=== PATIENT | female | born 1970 | race Caucasian/White ===

== ENCOUNTER 2020-03-06 16:51 | Outpatient (REF) | payer OTHER, SELFPAY ==
--- NOTE | 2020-03-06 | XR_ITS ---
EXAMINATION: RIGHT KNEE CLINICAL INFORMATION: Right knee pain COMPARISON: None TECHNIQUE: 2 views right knee FINDINGS: No bone joint or soft tissue is seen. IMPRESSION: Negative exam
== END 2020-03-06 16:52 | disposition home or self-care (01) ==
LOC: HO.HMGCX 16:51
PROVIDERS: Visit Provider Hospitalist
DX: M25.561 Pain in right knee (principal)
CPT/HCPCS: 73560

== ENCOUNTER 2022-08-20 15:06 | Outpatient (REF) | payer OTHER, SELFPAY ==
[2022-08-20 15:28] LABS: Appearance Urine Turbid; Color Urine Yellow; Glucose Urine UA Negative (Negative); Leukocyte Esterase Urine Moderate (2+) (Negative); Nitrite Urine Negative (Negative); PH 5.5 (5.0-9.0); Specific Gravity - Urine >= 1.030 (1.005-1.025); UMIC TRIGGER UACC YES; Urine Blood Negative (Negative); Urine Ketones Trace mg/dL (Negative); Urine Protein Negative (Neg-Trace)
[2022-08-20 15:34] LABS: Bacteria Urine 4+ (None Seen); Hyaline Casts Urine 0-2 /LPF (0-2); RBC Urine 0-2 /HPF (0-2); UACC Culture Trigger YES
== END 2022-08-20 15:07 | disposition home or self-care (01) ==
LOC: HO.LNP 15:06
PROVIDERS: Visit Provider Nurse Practitioner Family
DX: R30.0 Dysuria (principal); R42 Dizziness and giddiness
CPT/HCPCS: 81001; 87086; 87088; 87186

== ENCOUNTER 2022-09-01 08:48 | Outpatient (REF) | payer OTHER, SELFPAY ==
[2022-09-01 11:41] LABS: MANUAL DIFF FLAG NO
[2022-09-01 11:52] LABS: Basophils Percent Auto 0.5 % (0-2); Eosinophils Absolute Auto 0.2 X10*3/uL (0.0-0.4); Eosinophils Percent Auto 3.2 % (0-4); Hematocrit 42.4 % (37.0-47.0); Imm Gran Abs Auto 0.02 X10*3/uL (0.00-0.03); Imm Gran Pct Auto 0.3 % (0.0-0.4); Lymphocytes Absolute Auto 2.9 X10*3/uL (1.2-4.9); Lymphocytes Percent Auto 43.6 % (20-40); Mean Corpuscular Hemoglobin 29.6 pg (27.0-33.0); Mean Corpuscular Volume 89.6 fL (80.0-98.0); Mean Platelet Volume 11.7 fL (9.4-12.3); Monocytes Absolute Auto 0.5 X10*3/uL (0.1-1.2); Neutrophils Percent Auto 45.4 % (45-73); Platelet Count 201 X10*3/uL (160-400); Red Blood Count 4.73 X10*6/uL (4.20-5.50); Red Cell Distribution Width 13.4 % (11.0-16.0); White Blood Count 6.6 X10*3/uL (4.8-10.8)
[2022-09-01 12:25] LABS: Alanine Aminotransferase 36 U/L (0-31); Albumin Level 4.1 g/dL (3.5-5.0); Alkaline Phosphatase 51 U/L (39-117); Anion Gap 12 (12-20); Aspartate Amino Transferase 24 U/L (5-31); Bilirubin Total 0.4 mg/dL (0.0-1.0); Blood Urea Nitrogen 14 mg/dL (9-16); Calcium 9.2 mg/dL (8.4-10.2); Carbon Dioxide 26 mmol/L (22-29); Chloride 107 mmol/L (96-108); Cholesterol 165 mg/dL; Estimated Glomerular Filt Rate > 60; Glucose Fasting 96 mg/dL (60-99); HDL Cholesterol 45 mg/dL; LDL Cholesterol Calculated 79 mg/dl; Sodium 141 mmol/L (135-145); Total Protein 6.8 g/dL (6.5-8.0); Triglycerides 209 mg/dL
[2022-09-01 12:26] LABS: TSH reflex Free T4 1.24 uIU/mL (0.32-4.0)
[2022-09-03 04:23] LABS: Follicle Stimulating Hormone 6.2 mIU/mL; Lutenizing Hormone 4.5 mIU/mL
== END 2022-09-01 08:49 | disposition home or self-care (01) ==
LOC: HO.HMGCLDS 08:48
PROVIDERS: PCP Internal Medicine; Visit Provider Internal Medicine
DX: E66.09 Other obesity due to excess calories (principal); N93.8 Other specified abnormal uterine and vaginal bleeding; R23.2 Flushing; R42 Dizziness and giddiness; Z91.09 Other allergy status, other than to drugs and biological substances
CPT/HCPCS: 36415; 80053; 80061; 83001; 83002; 84443; 85025

== ENCOUNTER 2023-01-28 08:08 | Outpatient (AMB) | payer SELFPAY ==
[2023-01-28 08:13] VITALS: BP 122/72; PULSE 72; O2SAT 98; BMI 36.0
--- NOTE | 2023-01-28 08:13 | A.OFFPC_ITS ---
Vital Signs 01/28/23 08:13 Height 5 ft 5 in Weight 216 lb 8 oz BMI 36.0 BP 122/72 Blood Pressure Location Rt brachial Position Sitting Pulse 72 Pulse Source Pulse Oximeter Pulse Oximetry (%) 98 Intake Visit Reasons: PE Allergies penicillin G [Penicillin G] Allergy (Unknown, Verified 01/28/23 08:14) HIVES penicillin V Allergy (Unknown, Verified 01/28/23 08:14) unknown Bee stings Allergy (Unknown, Uncoded 08/20/22 12:58) swelling Codeine Adverse Reaction (Unknown, Uncoded 08/20/22 12:58) stomach upset Medication List - Last Reconciled 01/28/23 by Elo Cowan MD meclizine 12.5 mg PO BID-QID PRN 15 days Tobacco use date assessed: 08/27/22 Dental Screening Dental Screen Date: 01/28/23 Did you have a dental visit in the last 12 months?: Yes Did you have a dental problem in the last 6 months where you did not have access to dental care?: No Was dental information given to patient?: Patient has dentist HPI PE HPI Details Patient is 52-year-old female came in today for physical exam She had labs done August of this year Kidney function intact lipids well controlled One of liver enzyme was slightly elevated in 30s TSH was within normal limit FS and LDH was within normal limit as well Mammogram due Pap smear due, referral placed OBGYN Colonoscopy, patient would like to have a Cologuard test order placed BMI is 36.0 patient need to lose weight, appointment with dietitian offered, patient says that she had already know what to do she is just over eating Vital signs stable Patient has been having increasing anxiety lately she said that she does not need any assistance at this time but she might later on she will get back to me It has to do with her bills, patient is having difficulty keeping a with her finances. Her dizziness is better at this time she is no longer taking meclizine For allergies patient is taking [id number] long-acting antihistamine as needed Follow-up 1 year physical exam PFSH Family History Daughter Depression Anxiety Son Anxiety Depression Social History Housing: House Patient Tobacco Use Status: Former Tobacco user e-Cigarette/Vaping Use: Never Used service: No Current occupational status: employed Cognitive needs: No Hearing needs: No Vision needs: Yes Questionnaire PHQ-9 Over the last 2 weeks, how often have you been bothered by any of the following problems? 1. Little interest or pleasure in doing things: not at all 2. Feeling down, depressed, or hopeless: not at all 3. Trouble falling or staying asleep, or sleeping too much: nearly every day 4. Feeling tired or having little energy: not at all 5. Poor appetite or overeating: several days 6. Feeling bad about yourself - or that you are a failure or have let yourself or your family down: several days 7. Trouble concentrating on things, such as reading the newspaper or watching television: several days 8. Moving or speaking so slowly that other people could have noticed. Or the opposite - being so fidgety or restless that you have been moving around a lot more than usual: not at all 9. Thoughts that you would be better off or of hurting yourself in some way: not at all Total score: 6 Depression Screening Interpretation: Negative 78279 - PHQ-9 Billing: Yes Source: Developed by Drs. Fabian Palmer, Meli Carter, Dallas Brennan and colleagues, with an educational pam from [employer]. Thrive Questionnaire Date Thrive assessed: 01/28/23 I am a: Patient What is your living situation today?: I have a steady place to live Within the past 12 months, did the food you bought not last and you didn't have the money to get more?: Sometimes True Within the past 12 months, did you worry whether your food would run out before you got money to buy more?: Sometimes True Do you have trouble paying for medicines?: Yes Do you have trouble getting transportation to medical appointments?: No Do you have trouble paying your heating and electricity bill?: Yes Do you have trouble taking care of your child, family member or friend?: No Do you have trouble with day-to-day activities such as bathing, preparing meals, shopping, managing finances, etc.?: No Are you currently unemployed and looking for a job?: No Are you interested in more education?: Yes Please select the resources that you would like help with: Food, Paying for medicine and Utilities JACQUELINE-7 AMB Questionnaire JACQUELINE-7 Date JACQUELINE - 7 assessed: 01/28/23 Feeling nervous, anxious, or on edge: 2 = More than half the days Not being able to stop or control worryin = More than half the days Worrying too much about different things: 2 = More than half the days Trouble relaxin = More than half the days Being so restless that it is hard to sit still: 1 = Several days Becoming easily annoyed or irritable: 1 = Several days Feeling afraid as if something awful might happen: 2 = More than half the days Total JACQUELINE-7 score (0-4 normal; 5-9 mild; 10-14 moderate; 15-21 severe): 12 Source: Developed by Drs. Fabian Palmer, Meli Carter, Dallas Brennan and colleagues, with an educational pam from [employer]. JACQUELINE-7 Assessment Billing JACQUELINE-7 Assessment Tool: JACQUELINE-7 Assessment 72896 Review of Systems Const Denies chills, Denies fever(s) and Denies headache(s) Eyes Denies blurry vision ENT Denies headache(s), Denies nasal discharge, Denies nasal obstruction, Denies odynophagia and Denies sinus pain Card Denies chest pain at rest and Denies chest pain with activity Resp Denies cough and Denies hemoptysis GI Denies diarrhea, Denies odynophagia, Denies vomiting and Denies hematemesis Reports as per HPI Musc Denies abnormal gait Skin/Breast Reports as per HPI Neuro Denies Neuro-related abnormal movements, Denies Abnormal speech present, Denies abnormal gait, Denies headache(s) and Denies Sensory deficit (Neuro) Psych Denies mood swings and Denies paranoia Endo Reports as per HPI Kameron/Lymph Reports as per HPI Aller/Immun Reports as per HPI Physical exam (Primary Care) Vital Signs: Last Vital Signs Pulse 72 01/28/23 08:13 BP 122/72 01/28/23 08:13 Pulse Ox 98 01/28/23 08:13 BMI result Body Mass Index 36.0 Tobacco/Smoking Status: Tobacco use Status Tobacco use date assessed 08/27/22 01/28/23 08:14 Patient Tobacco Use Status Former Tobacco user 08/25/23 08:14 e-Cigarette/Vaping Use Never Used 01/28/23 08:14 PHQ-9: PHQ-9 Score PHQ-9: Total score 6 01/28/23 09:08 Depression Screening Interpretation: Negative Thrive Assessment: Date of Thrive Assessment Date Thrive assessed 01/28/23 01/28/23 09:08 Const General: cooperative, comfortable and no acute distress Orientation/consciousness: patient oriented x3 HENMT Head: Yes normocephalic and Yes atraumatic Eyes General: appearance normal, both eyes and all related structures Pupils: Equal, round and reactive pupils present EOM: EOMs intact bilaterally Neck Neck: Yes supple and No lymphadenopathy Thyroid: Thyroid normal Lymphatic: no lymphadenopathy noted Chest Breast/axilla palpation: normal palpation of the breasts Resp Effort & Inspection: normal respiratory effort and able to speak in complete sentences Auscultation: clear to auscultation bilaterally Cardio Heart sounds: S1 normal heart sound present and S2 normal heart sound present GI Palpation (GI): Soft to palpation and nontender Auscultation: normal bowel sounds General: Yes no CVA tenderness Back/Spine/Pelvis Back: no CVA tenderness Skin General skin exam: elasticity normal and turgor normal Neuro General: patient oriented x3 and gait normal Cranial nerves: Yes Equal, round and reactive pupils present Speech: No Abnormal speech present Sensory Exam: No Sensory deficit (Neuro) Coordination: tandem gait normal and Romberg test negative Extrem General: Yes normal exam except as noted and No edema Assessment and Plan Assessment & Plan (1) Encounter for general adult medical examination with abnormal findings: Code(s): Z00.01 - Encounter for general adult medical examination with abnormal findings (2) LFT elevation: Code(s): R79.89 - Other specified abnormal findings of blood chemistry (3) Obesity due to excess calories: Comment: If your BMI is between 25 and 29.9, you are overweight. If your BMI is 30 or greater, you are obese. ___ Being obese is a problem, because it increases the risks of many different health problems. It can also make it hard for you to move, breathe, and do other things that people who are at a healthy weight can do easily. Plus, being obese can be hard emotionally. ___ What are the health risks of being obese? Being obese increases a persons risk of developing many health problems. Here are just a few examples: __ Diabetes High blood pressure, High cholesterol, Heart disease (including heart attacks) Stroke, Sleep apnea (a disorder in which you stop breathing for short periods while asleep) Asthma, Cancer __ Does being obese shorten a persons life? Yes. Studies show that people who are obese younger than people who are a healthy weight. They also show that the risk of goes up the heavier a person is. The degree of increased risk depends on how long the person has been obese, and on what other medical problems he or she has. , Reduce your carbohydrate intake and choose carbs that are complex. Remember as a general rule of thumb, avoid highly processed foods. If it's white and soft, it's probably been stripped of its nutritional value. Change white bread to whole wheat bread, white rice to brown rice, white potatoes to sweet potatoes, white pasta to whole wheat pasta. Monitor portion sizes too: protein should be no bigger than your fist. Limit your red meat intake to only once or twice a wk. Eat more white meat but make sure to avoid creamy sauces etc. Broiling, baking or grilling is best. Increase dark, green leafy vegetables and fruits. Code(s): E66.09 - Other obesity due to excess calories Qualifiers: Body mass index: BMI 36.0-36.9 Obesity classification: adult class 2 (BMI 35 - 39.9) Serious obesity comorbidity presence: without serious comorbidity Qualified Code(s): E66.09 - Other obesity due to excess calories; Z68.36 - Body mass index [BMI] 36.0-36.9, adult (4) Environmental allergies: Code(s): Z91.09 - Other allergy status, other than to drugs and biological substances (5) Anxiety, generalized: Code(s): F41.1 - Generalized anxiety disorder (6) Stress at home: Code(s): F43.9 - Reaction to severe stress, unspecified Plan Patient is 52-year-old female came in today for physical exam She had labs done August of this year Kidney function intact lipids well controlled One of liver enzyme was slightly elevated in 30s TSH was within normal limit FS and LDH was within normal limit as well Mammogram due Pap smear due, referral placed OBGYN Colonoscopy, patient would like to have a Cologuard test order placed BMI is 36.0 patient need to lose weight, appointment with dietitian offered, patient says that she had already know what to do she is just over eating Vital signs stable Patient has been having increasing anxiety lately she said that she does not need any assistance at this time but she might later on she will get back to me It has to do with her bills, patient is having difficulty keeping a with her finances. Her dizziness is better at this time she is no longer taking meclizine For allergies patient is taking [id number] long-acting antihistamine as needed Follow-up 1 year physical exam Orders: Orders Liver Panel Today E66.09 - Other obesity due to excess calories, R79.89 - Other specified abnormal findings of blood chemistry, Z00.01 - Encounter for general adult medical examination with abnormal findings, Z91.09 - Other allergy status, other than to drugs and biological substances Referrals [employer] Referral Z01.419 - Encounter for gynecological examination (general) (routine) without abnormal findings Cologuard Test Z12.11 - Encounter for screening for malignant neoplasm of colon, Z12.12 - Encounter for screening for malignant neoplasm of rectum Coding Level of Care Code Est Pt Prev Care 40-64y(92208) Diagnoses Encounter for general adult medical examination with abnormal findings Z00.01 LFT elevation R79.89 Obesity due to excess calories E66.09; Z68.36 Body mass index: BMI 36.0-36.9 Obesity classification: adult class 2 (BMI 35 - 39.9) Serious obesity comorbidity presence: without serious comorbidity Environmental allergies Z91.09 Anxiety, generalized F41.1 Stress at home F43.9 Additional Codes JACQUELINE-7 Assessment Billing - JACQUELINE-7 Assessment Tool: JACQUELINE-7 Assessment [id number] ([id number])
== END 2023-01-28 08:45 | disposition home or self-care (01) ==
PROVIDERS: Visit Provider Internal Medicine
DX: Z00.01 Encounter for general adult medical examination with abnormal findings (principal); F43.9 Reaction to severe stress, unspecified; Z68.36 Body mass index [BMI] 36.0-36.9, adult; Z91.09 Other allergy status, other than to drugs and biological substances; R79.89 Other specified abnormal findings of blood chemistry; E66.09 Other obesity due to excess calories; F41.1 Generalized anxiety disorder
CPT/HCPCS: 99396

== ENCOUNTER 2024-02-08 14:39 | Outpatient (AMB) | payer OTHER, SELFPAY ==
[2024-02-08 14:40] VITALS: BP 126/84; PULSE 77; O2SAT 98; BMI 36.1
--- NOTE | 2024-02-08 14:40 | MHC.PC.OV ---
Vital Signs 02/08/24 14:40 Height 5 ft 5 in Weight 217 lb 2 oz BMI 36.1 BP 126/84 Blood Pressure Location Rt brachial Position Sitting Pulse 77 Pulse Source Pulse Oximeter Pulse Oximetry (%) 98 Oxygen Delivery Method Room Air Intake Visit Reasons: PE Allergies penicillin G [Penicillin G] Allergy (Unknown, Verified 02/08/24 14:41) HIVES penicillin V Allergy (Unknown, Verified 02/08/24 14:41) unknown Bee stings Allergy (Unknown, Uncoded 08/20/22 12:58) swelling Codeine Adverse Reaction (Unknown, Uncoded 08/20/22 12:58) stomach upset Medication List - Last Reconciled 02/08/24 by Elo Cowan MD No Known Home Meds Tobacco use date assessed: 02/08/24 Dental Screening Dental Screen Date: 02/08/24 Did you have a dental visit in the last 12 months?: Yes Did you have a dental problem in the last 6 months where you did not have access to dental care?: No Was dental information given to patient?: Patient has dentist HPI PE HPI Details Patient is a 53-year-old female came in today for physical exam Mammogram due Papsmear due Colonscopy due Appropriate referrals placed labs order placed fasting Knee pain continues left side more than right , she has seen [facility] in the past , PT ordered she couldnt finish PT due to work I would recommend to give them a call and book another appointment Lab order placed to be done fasting BMI is elevated patient is trying to lose weight. PFSH Family History Daughter Depression Anxiety Son Anxiety Depression Social History Housing: House Patient Tobacco Use Status: Former Tobacco user e-Cigarette/Vaping Use: Never Used service: No Current occupational status: employed Cognitive needs: No Hearing needs: No Vision needs: Yes Questionnaire PHQ-9 Over the last 2 weeks, how often have you been bothered by any of the following problems? 1. Little interest or pleasure in doing things: several days 2. Feeling down, depressed, or hopeless: several days 3. Trouble falling or staying asleep, or sleeping too much: not at all 4. Feeling tired or having little energy: several days 5. Poor appetite or overeating: not at all 6. Feeling bad about yourself - or that you are a failure or have let yourself or your family down: not at all 7. Trouble concentrating on things, such as reading the newspaper or watching television: not at all 8. Moving or speaking so slowly that other people could have noticed. Or the opposite - being so fidgety or restless that you have been moving around a lot more than usual: not at all 9. Thoughts that you would be better off or of hurting yourself in some way: not at all Total score: 3 Depression Screening Interpretation: Negative Depression Screening Done: Yes 08052 - PHQ-9 Billing: Yes Source: Developed by Drs. Fabian Palmer, Meli Carter, Dallas Brennan and colleagues, with an educational pam from [employer]. Thrive Questionnaire Date Thrive assessed: 02/08/24 I am a: Patient What is your living situation today?: I have a steady place to live Within the past 12 months, did the food you bought not last and you didn't have the money to get more?: Never true Within the past 12 months, did you worry whether your food would run out before you got money to buy more?: Never true Do you have trouble paying for medicines?: No Do you have trouble getting transportation to medical appointments?: No Do you have trouble paying your heating and electricity bill?: No Do you have trouble taking care of your child, family member or friend?: No Do you have trouble with day-to-day activities such as bathing, preparing meals, shopping, managing finances, etc.?: No Are you currently unemployed and looking for a job?: No Are you interested in more education?: No Please select the resources that you would like help with: None Currently or been in a relationship where the following occur: No concerns reported THRIVE Score: 0 AUDIT C Alcohol Use Questionnaire (AUDIT-C) 1. How often do you have a drink containing alcohol?: Never 3. How often do you have six or more drinks on one occasion?: Never Total Score: 0 Score Reviewed/Action Taken: Yes JACQUELINE-7 AMB Questionnaire JACQUELINE-7 Date JACQUELINE - 7 assessed: 02/08/24 Feeling nervous, anxious, or on edge: 1 = Several days Not being able to stop or control worryin = Several days Worrying too much about different things: 1 = Several days Trouble relaxin = More than half the days Being so restless that it is hard to sit still: 1 = Several days Becoming easily annoyed or irritable: 1 = Several days Feeling afraid as if something awful might happen: 2 = More than half the days Total JACQUELINE-7 score (0-4 normal; 5-9 mild; 10-14 moderate; 15-21 severe): 9 Source: Developed by Drs. Fabian Palmer, Meli Carter, Dallas Brennan and colleagues, with an educational pam from [employer]. JACQUELINE-7 Assessment Billing JACQUELINE-7 Assessment Tool: JACQUELINE-7 Assessment 09980 Review of Systems Const Denies chills, Denies fever(s) and Denies headache(s) Eyes Denies blurry vision ENT Denies headache(s), Denies nasal discharge, Denies nasal obstruction, Denies odynophagia and Denies sinus pain Card Denies chest pain at rest and Denies chest pain with activity Resp Denies cough and Denies hemoptysis GI Denies diarrhea, Denies odynophagia, Denies vomiting and Denies hematemesis Reports as per HPI Musc Denies abnormal gait Skin/Breast Reports as per HPI Neuro Denies Neuro-related abnormal movements, Denies Abnormal speech present, Denies abnormal gait, Denies headache(s) and Denies Sensory deficit (Neuro) Psych Denies mood swings and Denies paranoia Endo Reports as per HPI Kameron/Lymph Reports as per HPI Aller/Immun Reports as per HPI Physical exam (Primary Care) Vital Signs: Last Vital Signs Pulse 77 02/08/24 14:40 BP 126/84 02/08/24 14:40 Pulse Ox 98 02/08/24 14:40 Oxygen Delivery Method Room Air 02/08/24 14:40 BMI result Body Mass Index 36.1 Tobacco/Smoking Status: Tobacco use Status Tobacco use date assessed 02/08/24 02/08/24 14:43 Patient Tobacco Use Status Former Tobacco user 02/08/24 14:43 e-Cigarette/Vaping Use Never Used 02/08/24 14:43 PHQ-9: PHQ-9 Score PHQ-9: Total score 3 02/08/24 14:59 Depression Screening Interpretation: Negative Thrive Assessment: Date of Thrive Assessment Date Thrive assessed 02/08/24 02/08/24 14:43 Currently or been in a relationship where the following occur: No concerns reported Const General: cooperative, comfortable and no acute distress Orientation/consciousness: patient oriented x3 HENMT Head: Yes normocephalic and Yes atraumatic Eyes General: appearance normal, both eyes and all related structures Pupils: Equal, round and reactive pupils present EOM: EOMs intact bilaterally Neck Neck: Yes supple and No lymphadenopathy Thyroid: Thyroid normal Lymphatic: no lymphadenopathy noted Chest Breast/axilla palpation: normal palpation of the breasts Resp Effort & Inspection: normal respiratory effort and able to speak in complete sentences Auscultation: clear to auscultation bilaterally Cardio Heart sounds: S1 normal heart sound present and S2 normal heart sound present GI Palpation (GI): Soft to palpation and nontender Auscultation: normal bowel sounds General: Yes no CVA tenderness Back/Spine/Pelvis Back: no CVA tenderness Skin General skin exam: elasticity normal and turgor normal Neuro General: patient oriented x3 and gait normal Cranial nerves: Yes Equal, round and reactive pupils present Speech: No Abnormal speech present Sensory Exam: No Sensory deficit (Neuro) Coordination: tandem gait normal and Romberg test negative Extrem General: Yes normal exam except as noted and No edema Assessment and Plan Assessment & Plan (1) Encounter for general adult medical examination with abnormal findings: Code(s): Z00.01 - Encounter for general adult medical examination with abnormal findings (2) Obesity due to excess calories: Comment: If your BMI is between 25 and 29.9, you are overweight. If your BMI is 30 or greater, you are obese. ___ Being obese is a problem, because it increases the risks of many different health problems. It can also make it hard for you to move, breathe, and do other things that people who are at a healthy weight can do easily. Plus, being obese can be hard emotionally. ___ What are the health risks of being obese? Being obese increases a persons risk of developing many health problems. Here are just a few examples: __ Diabetes High blood pressure, High cholesterol, Heart disease (including heart attacks) Stroke, Sleep apnea (a disorder in which you stop breathing for short periods while asleep) Asthma, Cancer __ Does being obese shorten a persons life? Yes. Studies show that people who are obese younger than people who are a healthy weight. They also show that the risk of goes up the heavier a person is. The degree of increased risk depends on how long the person has been obese, and on what other medical problems he or she has. , Reduce your carbohydrate intake and choose carbs that are complex. Remember as a general rule of thumb, avoid highly processed foods. If it's white and soft, it's probably been stripped of its nutritional value. Change white bread to whole wheat bread, white rice to brown rice, white potatoes to sweet potatoes, white pasta to whole wheat pasta. Monitor portion sizes too: protein should be no bigger than your fist. Limit your red meat intake to only once or twice a wk. Eat more white meat but make sure to avoid creamy sauces etc. Broiling, baking or grilling is best. Increase dark, green leafy vegetables and fruits. Code(s): E66.09 - Other obesity due to excess calories Qualifiers: Body mass index: BMI 36.0-36.9 Obesity classification: adult class 2 (BMI 35 - 39.9) Serious obesity comorbidity presence: without serious comorbidity Qualified Code(s): E66.09 - Other obesity due to excess calories; Z68.36 - Body mass index [BMI] 36.0-36.9, adult (3) Osteoarthritis involving multiple joints on both sides of body: Code(s): M15.9 - Polyosteoarthritis, unspecified Plan Patient is a 53-year-old female came in today for physical exam Mammogram due Papsmear due Colonscopy due Appropriate referrals placed labs order placed fasting Knee pain continues left side more than right , she has seen [facility] in the past , PT ordered she couldnt finish PT due to work I would recommend to give them a call and book another appointment Lab order placed to be done fasting BMI is elevated patient is trying to lose weight. Orders: Orders Complete Blood Count Auto Diff Today E66.09 - Other obesity due to excess calories, M15.9 - Polyosteoarthritis, unspecified, Z00.01 - Encounter for general adult medical examination with abnormal findings, Z68.36 - Body mass index [BMI] 36.0-36.9, adult Lipid Panel Today E66.09 - Other obesity due to excess calories, M15.9 - Polyosteoarthritis, unspecified, Z00.01 - Encounter for general adult medical examination with abnormal findings, Z68.36 - Body mass index [BMI] 36.0-36.9, adult Vitamin D 25-OH (D2 and D3) Today E66.09 - Other obesity due to excess calories, M15.9 - Polyosteoarthritis, unspecified, Z00.01 - Encounter for general adult medical examination with abnormal findings, Z68.36 - Body mass index [BMI] 36.0-36.9, adult TSH reflex Free T4 Today E66.09 - Other obesity due to excess calories, M15.9 - Polyosteoarthritis, unspecified, Z00.01 - Encounter for general adult medical examination with abnormal findings, Z68.36 - Body mass index [BMI] 36.0-36.9, adult MM tomosynthesis screening BI Today Z12.31 - Encounter for screening mammogram for malignant neoplasm of breast Comprehensive [place]. Panel Fast Today E66.09 - Other obesity due to excess calories, M15.9 - Polyosteoarthritis, unspecified, Z00.01 - Encounter for general adult medical examination with abnormal findings, Z68.36 - Body mass index [BMI] 36.0-36.9, adult Referrals [employer] Referral Z01.419 - Encounter for gynecological examination (general) (routine) without abnormal findings Open Access Screening Colonoscopy Referral Z12.11 - Encounter for screening for malignant neoplasm of colon Coding Level of Care Code Est Pt Level 3 (31239) Est Pt Prev Care 40-64y(08729) Diagnoses Encounter for general adult medical examination with abnormal findings Z00.01 Class 2 obesity due to excess calories without serious comorbidity with body mass index (BMI) of 36.0 to 36.9 in adult E66.09; Z68.36 Body mass index: BMI 36.0-36.9 Obesity classification: adult class 2 (BMI 35 - 39.9) Serious obesity comorbidity presence: without serious comorbidity Osteoarthritis involving multiple joints on both sides of body M15.9 Additional Codes JACQUELINE-7 Assessment Billing - JACQUELINE-7 Assessment Tool: JACQUELINE-7 Assessment [id number] ([id number])
== END 2024-02-08 15:05 | disposition home or self-care (01) ==
PROVIDERS: PCP Internal Medicine; Visit Provider Internal Medicine
DX: Z00.00 Encounter for general adult medical examination without abnormal findings (principal); E66.09 Other obesity due to excess calories; Z68.36 Body mass index [BMI] 36.0-36.9, adult; M15.9 Polyosteoarthritis, unspecified
CPT/HCPCS: 99396

== ENCOUNTER 2025-02-20 14:39 | Outpatient (AMB) | payer OTHER, SELFPAY ==
[2025-02-20 14:44] VITALS: BP 130/74; PULSE 76; O2SAT 96; BMI 37.4
--- NOTE | 2025-02-20 14:44 | A.OFFPC_ITS ---
Vital Signs 02/20/25 14:44 Height 5 ft 5 in Weight 225 lb BMI 37.4 BP 130/74 Blood Pressure Location Lt brachial Position Sitting Pulse 76 Pulse Source Pulse Oximeter Pulse Oximetry (%) 96 Intake Visit Reasons: PE - see comments Allergies penicillin G (Penicillin G) Allergy (Unknown, Verified 02/20/25 14:46) HIVES penicillin V Allergy (Unknown, Verified 02/20/25 14:46) unknown Bee stings Allergy (Unknown, Uncoded 08/20/22 12:58) swelling Codeine Adverse Reaction (Unknown, Uncoded 08/20/22 12:58) stomach upset Medication List - Last Reconciled 02/20/25 by Elo Cowan MD No Known Home Meds Tobacco use date assessed: 02/20/25 Dental Screening Dental Screen Date: 02/20/25 Did you have a dental visit in the last 12 months?: Yes Did you have a dental problem in the last 6 months where you did not have access to dental care?: No Was dental information given to patient?: Patient has dentist HPI PE - see comments HPI Details PE The patient is a 54-year-old female presenting for a wellness visit and management of ongoing health issues. Elevated Blood Pressure: - The patient reports that her blood pre ssure has been in a so-called crain zone, usually around 130/74. - She is advised to monitor her blood pr essure periodically. - She is aware of the importance of keep ing her blood pressure below WNL. Tendinitis: - The patient experiences tendinitis in both thumbs. - She reports pain that radiates downwar ds, linked to lifting activities. - Initially noticed when she started lif ting people as part of her work. Hiatal Hernia: - The patient reports that her hiatal he rnia acts up occasionally. - Dietary adjustments include eating mor e wheat and less white bread. Hemorrhoids: - The patient experiences itching associ ated with hemorrhoids but denies any bleeding. Cervical Disc Disease: - The patient has a history of cervical surgery involving disc intervention, with discs fused or added implant. 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 - Engages in activities to manage pain a nd tendinitis - Diet includes more wheat, attempting t o reduce sugar intake Health Maintenance - Recommended to check blood pressure oc casionally - Discussed the necessity of a colonosco py; Cologuard order placed pending insurance confirmation - Due mammogram scheduled for May 08 - Advised for dermatology checkup due to fair skin - Encouraged to maintain joint mobility through exercise [place] [facility] - Conrado CONNOR with scheduled appointme nt on May 08 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 - Enjoys current job Patient Instructions - Regularly check blood pressure and ens ure it stays under 140 - Confirm insurance coverage for colonos copy - Monitor dietary intake to manage hiata l hernia and reduce sugar - Follow up with dermatology for skin ch anges if needed - Maintain physical exercise without ove rexertion to keep joints mobile Review of Systems - General: No fever no chills - Neurological: No headaches no dizzin ess - Ear nose throat: No sore throat no hearing difficulty no ear pain - Cardiovascular: No syncope, no chest pain, no palpitations - Gastrointestinal: No nausea vomiting or diarrhea - Endocrine: No polyuria polydipsia no heat intolerance - Genitourinary: No dysuria - Skin: No new complaints Physical Exam General: Cooperative, healthy appearing, comfortable, no acute distress Orientation: Patient oriented x3 Head: Normal to inspection Ears: Within normal limit visually Nose: Normal external nose present Face and sinus: Normal facial exam Eyes: Appearance normal, extraocular movement intact pupils reactive Neck: Normal visual inspection and supple Respiratory: Normal respiratory effort and able to speak in complete sentences. Clear to auscultation, no stridor Cardiovascular: S1 and S2 RRR GI: Normal to inspection. Soft to palpation and nontender Skin: Turgor normal Neuro: Patient oriented x3, motor sensory intact, balance intact, tandem pass Extremities: Normal to inspection, ROM intact PFSH Family History Daughter Depression Anxiety Son Anxiety Depression Social History Housing: House Patient Tobacco Use Status: Former Tobacco user e-Cigarette/Vaping Use: Never Used service: No Current occupational status: employed Cognitive needs: No Hearing needs: No Vision needs: Yes Questionnaire PHQ-9 Over the last 2 weeks, how often have you been bothered by any of the following problems? 1. Little interest or pleasure in doing things: not at all 2. Feeling down, depressed, or hopeless: not at all 3. Trouble falling or staying asleep, or sleeping too much: not at all 4. Feeling tired or having little energy: several days 5. Poor appetite or overeating: not at all 6. Feeling bad about yourself - or that you are a failure or have let yourself or your family down: not at all 7. Trouble concentrating on things, such as reading the newspaper or watching television: not at all 8. Moving or speaking so slowly that other people could have noticed. Or the opposite - being so fidgety or restless that you have been moving around a lot more than usual: not at all 9. Thoughts that you would be better off or of hurting yourself in some way: not at all Total score: 1 Depression Screening Interpretation: Negative Depression Screening Done: Yes 08945 - PHQ-9 Billing: Yes Source: Developed by Drs. Fabian Palmer, Meli Carter, Dallas Brennan and colleagues, with an educational pam from [employer]. Thrive Questionnaire Date Thrive assessed: 02/20/25 I am a: Patient What is your living situation today?: I have a steady place to live Within the past 12 months, did the food you bought not last and you didn't have the money to get more?: Sometimes True Within the past 12 months, did you worry whether your food would run out before you got money to buy more?: Sometimes True Do you have trouble paying for medicines?: No Do you have trouble getting transportation to medical appointments?: No Do you have trouble paying your heating and electricity bill?: Yes Do you have trouble taking care of your child, family member or friend?: No Do you have trouble with day-to-day activities such as bathing, preparing meals, shopping, managing finances, etc.?: No Are you currently unemployed and looking for a job?: No Are you interested in more education?: No Please select the resources that you would like help with: None Currently or been in a relationship where the following occur: No concerns reported THRIVE Score: 3 AUDIT C Alcohol Use Questionnaire (AUDIT-C) 1. How often do you have a drink containing alcohol?: Monthly or less 2. How many drinks containing alcohol do you have on a typical day when you are drinking?: 1 or 2 3. How often do you have six or more drinks on one occasion?: Never Total Score: 1 Score Reviewed/Action Taken: Yes JACQUELINE-7 AMB Questionnaire JACQUELINE-7 Date JACQUELINE - 7 assessed: 02/20/25 Feeling nervous, anxious, or on edge: 0 = Not at all Not being able to stop or control worryin = Not at all Worrying too much about different things: 0 = Not at all Trouble relaxin = Not at all Being so restless that it is hard to sit still: 0 = Not at all Becoming easily annoyed or irritable: 0 = Not at all Feeling afraid as if something awful might happen: 0 = Not at all Total JACQUELINE-7 score (0-4 normal; 5-9 mild; 10-14 moderate; 15-21 severe): 0 Source: Developed by Drs. Fabian Palmer, Meli Carter, Dallas Brennan and colleagues, with an educational pam from [employer]. JACQUELINE-7 Assessment Billing JACQUELINE-7 Assessment Tool: JACQUELINE-7 Assessment 57091 Physical exam (Primary Care) Vital Signs: Last Vital Signs Pulse 76 02/20/25 14:44 BP 130/74 02/20/25 14:44 Pulse Ox 96 02/20/25 14:44 BMI result Body Mass Index 37.4 Tobacco/Smoking Status: Tobacco use Status Tobacco use date assessed 02/20/25 02/20/25 14:47 Patient Tobacco Use Status Former Tobacco user 02/20/25 14:47 e-Cigarette/Vaping Use Never Used 02/20/25 14:47 PHQ-9: PHQ-9 Score PHQ-9: Total score 1 02/20/25 15:02 Depression Screening Interpretation: Negative Thrive Assessment: Date of Thrive Assessment Date Thrive assessed 02/20/25 02/20/25 14:47 Currently or been in a relationship where the following occur: No concerns reported Coding Level of Care Code Est Pt Level 3 (23771) Est Pt Prev Care 40-64y(55302) Diagnoses Encounter for general adult medical examination with abnormal findings Z00.01 Class 2 obesity due to excess calories without serious comorbidity with body mass index (BMI) of 36.0 to 36.9 in adult E66.09; Z68.36 Body mass index: BMI 36.0-36.9 Obesity classification: adult class 2 (BMI 35 - 39.9) Serious obesity comorbidity presence: without serious comorbidity Environmental allergies Z91.09 Osteoarthritis involving multiple joints on both sides of body M15.9 Additional Codes JACQUELINE-7 Assessment Billing - JACQUELINE-7 Assessment Tool: JACQUELINE-7 Assessment 32150 ([id number]) PHQ-9 - 44848 - PHQ-9 Billing: Yes ([id number]) Assessment & Plan Assessment & Plan (1) Encounter for general adult medical examination with abnormal findings: Code(s): Z00.01 - Encounter for general adult medical examination with abnormal findings Category: Medical (2) Obesity due to excess calories: Comment: If your BMI is between 25 and 29.9, you are overweight. If your BMI is 30 or greater, you are obese. ___ Being obese is a problem, because it increases the risks of many different health problems. It can also make it hard for you to move, breathe, and do other things that people who are at a healthy weight can do easily. Plus, being obese can be hard emotionally. ___ What are the health risks of being obese? Being obese increases a persons risk of developing many health problems. Here are just a few examples: __ Diabetes High blood pressure, High cholesterol, Heart disease (including heart attacks) Stroke, Sleep apnea (a disorder in which you stop breathing for short periods while asleep) Asthma, Cancer __ Does being obese shorten a persons life? Yes. Studies show that people who are obese younger than people who are a healthy weight. They also show that the risk of goes up the heavier a person is. The degree of increased risk depends on how long the person has been obese, and on what other medical problems he or she has. , Reduce your carbohydrate intake and choose carbs that are complex. Remember as a general rule of thumb, avoid highly processed foods. If it's white and soft, it's probably been stripped of its nutritional value. Change white bread to whole wheat bread, white rice to brown rice, white potatoes to sweet potatoes, white pasta to whole wheat pasta. Monitor portion sizes too: protein should be no bigger than your fist. Limit your red meat intake to only once or twice a wk. Eat more white meat but make sure to avoid creamy sauces etc. Broiling, baking or grilling is best. Increase dark, green leafy vegetables and fruits. Code(s): E66.09 - Other obesity due to excess calories Category: Medical Qualifiers: Body mass index: BMI 36.0-36.9 Obesity classification: adult class 2 (BMI 35 - 39.9) Serious obesity comorbidity presence: without serious comorbidity Qualified Code(s): E66.09 - Other obesity due to excess calories; Z68.36 - Body mass index [BMI] 36.0-36.9, adult (3) Environmental allergies: Code(s): Z91.09 - Other allergy status, other than to drugs and biological substances Category: Medical (4) Osteoarthritis involving multiple joints on both sides of body: Code(s): M15.9 - Polyosteoarthritis, unspecified Category: Medical Plan PE The patient is a 54-year-old female presenting for a wellness visit and management of ongoing health issues. Elevated Blood Pressure: - The patient reports that her blood pressure has been in a so-called crain zo ne, usually around 130/74. - She is advised to monitor her blood pressure periodically. - She is aware of the importance of keeping her blood pressure below WNL. Tendinitis: - The patient experiences tendinitis in both thumbs. - She reports pain that radiates downwards, linked to lifting activities. - Initially noticed when she started lifting people as part of her work. Hiatal Hernia: - The patient reports that her hiatal hernia acts up occasionally. - Dietary adjustments include eating more wheat and less white bread. Hemorrhoids: - The patient experiences itching associated with hemorrhoids but denies any bleeding. Cervical Disc Disease: - The patient has a history of cervical surgery involving disc intervention, with discs fused or added implant. 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 - Engages in activities to manage pain and tendinitis - Diet includes more wheat, attempting to reduce sugar intake Health Maintenance - Recommended to check blood pressure occasionally - Discussed the necessity of a colonoscopy; Cologuard order placed pending insurance confirmation - Due mammogram scheduled for May 08 - Advised for dermatology checkup due to fair skin - Encouraged to maintain joint mobility through exercise [place] [facility] - Conrado CONNOR with scheduled appointment on May 08 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 - Enjoys current job Patient Instructions - Regularly check blood pressure and ensure it stays under 140 - Confirm insurance coverage for colonoscopy - Monitor dietary intake to manage hiatal hernia and reduce sugar - Follow up with dermatology for skin changes if needed - Maintain physical exercise without overexertion to keep joints mobile Orders: Orders TSH reflex Free T4 02/20/25 E66.09 - Other obesity due to excess calories, Z00.01 - Encounter for general adult medical examination with abnormal findings, Z68.36 - Body mass index [BMI] 36.0-36.9, adult, Z91.09 - Other allergy status, other than to drugs and biological substances MM tomosynthesis screening BI 02/20/25 Z12.31 - Encounter for screening mammogram for malignant neoplasm of breast Complete Blood Count Auto Diff 02/20/25 E66.09 - Other obesity due to excess calories, Z00.01 - Encounter for general adult medical examination with abnormal findings, Z68.36 - Body mass index [BMI] 36.0-36.9, adult, Z91.09 - Other allergy status, other than to drugs and biological substances Comprehensive [place]. Panel Fast 02/20/25 E66.09 - Other obesity due to excess calories, Z00.01 - Encounter for general adult medical examination with abnormal findings, Z68.36 - Body mass index [BMI] 36.0-36.9, adult, Z91.09 - Other allergy status, other than to drugs and biological substances Lipase 02/20/25 E66.09 - Other obesity due to excess calories, Z00.01 - Encounter for general adult medical examination with abnormal findings, Z68.36 - Body mass index [BMI] 36.0-36.9, adult, Z91.09 - Other allergy status, other than to drugs and biological substances Referrals Cologuard Test Z12.11 - Encounter for screening for malignant neoplasm of colon
--- OUTSIDE RECORDS SUMMARY | 2025-02-20 18:18 | XMS_ITS | Clinical Summary ---
Author Organization [facility] Address [address] [place] [address] Care Team Providers Care Psych Assistant Name Role Phone Unavailable Primary Care Provider Unavailabl e Source Comments PLEASE NOTE, if this patient is a minor, it may be UNLAWFUL to discuss sensitive information that is contained in these records (such as FAMILY PLANNING, MENTAL HEALTH or SUBSTANCE ABUSE) with the minor patient's parent or other person without the patient's specific authorization.[facility] Allergies Active Allergy Reactions Criticality Noted Date Comments Penicillin G 10/28/2021 Medications No known medications Active Problems No known active problems Social History Tobacco Use Types Packs/Day Years Used Date Smoking Tobacco: Never Smokeless Tobacco: Never Tobacco Cessation:Counseling Given: Not Answered Social Connections Answer Date Recorded Connectedness 0 02/17/2024 Financial Resource Strain Answer Date R ecorded Financial Resource Strain 0 2021 Stress Answer Date Recorded Stress 0 10/28/2021 Physical Activity Answer Date Recorded Physical Activity 0 10/28/2021 Food Insecurity Answer Date Recorded Food 0 03/01/2024 Transportation Needs Answer Date Record ed Transportation 0 10/28/2021 Housing Stability Answer Date Recorded Housing 0 10/28/2021 Safety and Environment Answer Date Saad rded Safety 0 10/28/2021 Utilities Answer Date Recorded Utilities 0 10/28/2021 Employment Answer Date Recorded Stress 0 02/17/2024 Comments Unknown Sex and Gender Information Value Date Recorded Sex Assigned at Not on file Legal Sex Female 8:42 AM PDT Gender Identity Not on file Sexual Orientation Not on file Last Filed Vital Signs Vital Sign Reading Time Taken Comments Blood Pressure 130/90 10/06/2023 9:05 AM EDT Pulse 81 10/06/2023 9:05 AM EDT Temperature - - Respiratory Rate - - Oxygen Saturation - - Inhaled Oxygen Concentration - - Weight - - Height - - Body Mass Index - - Plan of Treatment Health Maintenance Due Date Last Done Comments Anxiety Screening 1972 Diabetes Screening 1972 HPV Screening 1972 Hepatitis C Screening 1972 Lipid Screening 1972 Pap + HPV 1972 Tobacco Screening 1972 HIV Screening 11/04/1987 Imm-DTaP/Tdap/Td (1 - Tdap) 11/04/1991 Imm-Hepatitis B (1 of 3 - 19+ 3-dose series) 2 Cervical Cancer Screening 1993 Pap Smear 1993 Breast Cancer Screening (Mammogram) 2012 CT Colonography 2017 Colonoscopy 2017 Colorectal Cancer Screening 2017 FIT/gFOBT 2017 Fecal DNA 2017 Flexible Sigmoidoscopy 2017 Dental BW 10/30/2022 10/28/2021 Dental Examination 10/30/2022 10/28/2021 Imm-Pneumococcal 50+ (2 of 2 - PCV) 11/03/202205/28 Imm-Zoster, Recombinant (1 of 2) 2022 Dental Prophy 02/05/2023 02/03/2022 Alcohol and Drug Screen 06/06/2024 Depression Annual Screen 06/06/2024 Hypertension Screening (#1) 10/05/2024 [id number] ( - season) 2025 Imm-Influenza (#1) 2025 Dental FMX/Pano 10/30/2026 10/28/2021 Cervical Ablation/Cold-Knife Conization Discontinued Cervical Cryotherapy Discontinued Colposcopy Discontinued Endometrial Biopsy Discontinued Excision/Leep Discontinued HPV Genotyping Discontinued Vaginal Pap Discontinued Vulvoscopy Discontinued Procedures Procedure Name Priority Date/Time Associated Diagnosis Comments Full PROPHYLAXIS - ADULT Routine 022 3:40 PM EDT Gingivitis Full INTRAORAL - COMP SERIES OF RADIOGRAPHIC IMAGES Routine 10/28/2021 4:20 PM EDT Gingivitis Full COMP ORAL EVALUATION - NEW/ESTABLISHED PATIENT Routine 10/28/2021 4:20 PM EDT Gingivitis from Last 3 Months or Most Recently Relevant to Health Maintenance Insurance [employer] DENT[employer]
== END 2025-02-20 15:05 | disposition home or self-care (01) ==
PROVIDERS: PCP Internal Medicine; Visit Provider Internal Medicine
DX: Z00.00 Encounter for general adult medical examination without abnormal findings (principal); M15.9 Polyosteoarthritis, unspecified; E66.09 Other obesity due to excess calories; Z68.36 Body mass index [BMI] 36.0-36.9, adult; Z91.09 Other allergy status, other than to drugs and biological substances

== ENCOUNTER → 2025-02-20 14:39 | Outpatient (BNVA) | payer OTHER, SELFPAY | PROVIDERS: PCP Internal Medicine; Visit Provider Internal Medicine | DX: Z00.01 Encounter for general adult medical examination with abnormal findings (principal); E66.09 Other obesity due to excess calories; R03.0 Elevated blood-pressure reading, without diagnosis of hypertension; M77.8 Other enthesopathies, not elsewhere classified; K44.9 Diaphragmatic hernia without obstruction or gangrene; K64.9 Unspecified hemorrhoids; M50.30 Other cervical disc degeneration, unspecified cervical region; M15.9 Polyosteoarthritis, unspecified; Z91.09 Other allergy status, other than to drugs and biological substances; Z68.36 Body mass index [BMI] 36.0-36.9, adult | CPT/HCPCS: 96127 ==

== ENCOUNTER → 2025-04-15 16:30 | Outpatient (BNV) | payer OTHER, SELFPAY | PROVIDERS: PCP Internal Medicine; Visit Provider Radiology Body Imaging | DX: Z12.31 Encounter for screening mammogram for malignant neoplasm of breast (principal) | CPT/HCPCS: 77063; 77067 ==

== ENCOUNTER 2025-04-15 16:37 | Outpatient (REF) | payer OTHER, SELFPAY ==
--- NOTE | ~2025-04-15 | MM_ITS ---
EXAMINATION: MM SCREENING DIGITAL BREAST TOMOSYNTHESIS, BILATERAL CLINICAL INFORMATION: Screening. Asymptomatic. COMPARISON: Comparison made to multiple prior, most recent April 09, 2019, and most remote March 31, 2007. TECHNIQUE: Digital breast tomosynthesis is performed in mediolateral oblique and craniocaudal views along with computer-aided detection (CAD). Synthesized 2D images are generated from the tomosynthesis. FINDINGS: BREAST COMPOSITION: There are scattered areas of fibroglandular density. RIGHT BREAST: No significant masses, suspicious calcifications or other abnormalities are seen. LEFT BREAST: Focal asymmetry in the upper outer quadrant is not significantly changed from 2006. No significant masses, suspicious calcifications or other abnormalities are seen. MM/MM tomosynthesis screening BI IMPRESSION: BILATERAL BREASTS: Benign, no mammographic evidence of malignancy. Normal interval follow-up is recommended in 12 months. ASSESSMENT: BI-RADS: Category 2: Benign RECOMMENDATION: Routine annual mammography screening. FOLLOW-UP: 1 year F/U This examination should not preclude the clinical evaluation of a suspicious palpable abnormality. This patient's information was entered into a reminder system with a target due date for their next mammogram. Electronically signed by: Saulo Mariee MD 04/16/2025 10:[address] [facility]
== END 2025-04-15 16:38 | disposition home or self-care (01) ==
LOC: HO.MAMMO 16:37
PROVIDERS: PCP Internal Medicine; Visit Provider Internal Medicine
DX: Z12.31 Encounter for screening mammogram for malignant neoplasm of breast (principal)
CPT/HCPCS: 77063; 77067

== ENCOUNTER 2025-05-08 08:43 | Outpatient (AMB) | payer OTHER, SELFPAY ==
--- NOTE | 2025-05-08 08:46 | MHC.OFFVIS ---
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 no concerns Knotter Required: No Information Interpreted: non-clinical & clinical Director Of Staff Development: Director Of Staff Development Present (Andreea) Accompanied by: Self / Same As Patient Allergies penicillin G (Penicillin G) Allergy (Unknown, Verified 05/08/25 08:51) HIVES penicillin V Allergy (Unknown, Verified 05/08/25 08:51) unknown Bee stings Allergy (Unknown, Uncoded 05/08/25 08:51) swelling Codeine Adverse Reaction (Unknown, Uncoded 05/08/25 08:51) stomach upset Medication List - Last Reconciled 05/08/25 by Avani Mulligan LPN No Known Home Meds Is last menstrual period known: Yes Last menstrual period: 04/18/25 Do you need a note to return to daycare/school/sports/work: Yes HPI Comments Details: Patient is a 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 Menarche age 13-14. One episode of closely spaced cycles last month, no skipping. Currently sexually active. Occasional dryness. STI testing offered; she accepts, declines bloodwork. Attempting to eat a healthy diet with calcium and vitamin D and stays active with limited exercise. Last pap smear; years ago, negative. Last mammogram; 2024. [employer] is UTD. [facility] Family History Daughter Depression Anxiety Son Anxiety Depression Maternal Grandmother No problems noted. Social History Housing: House Patient Tobacco Use Status: Former Tobacco user e-Cigarette/Vaping Use: Never Used service: No Current occupational status: employed Cognitive needs: No Hearing needs: No Vision needs: Yes Female Reproductive History Menstrual Age of Menarche: 14 Date of last menstrual period: 04/18/25 control method: other (withdrawal method) Total pregnancies: 7 Number of Living Children: 3 Ab induced: 3 Ab spontaneous: 1 Date of last pap smear: 05/08/20 Date of Mammogram: 04/15/25 Review of Systems Const All systems reviewed & are unremarkable except as noted in HPI and below Reports as per HPI Eyes Reports no additional complaints ENT Reports no additional complaints Card Reports no additional complaints Resp Reports no additional complaints GI Reports as per HPI and Reports no additional complaints Reports as per HPI Musc Reports no additional complaints Skin/Breast Reports as per HPI Neuro Reports no additional complaints Psych Reports no additional complaints Endo Reports no additional complaints Kameron/Lymph Reports no additional complaints Aller/Immun Reports no additional complaints Physical Exam Vital Signs: Last Vital Signs BP 122/78 05/08/25 09:00 BMI result Body Mass Index 37.3 Const General: cooperative, healthy appearing, no acute distress, well developed and alert Orientation/consciousness: patient oriented x3 HEENT Head: Yes normal to inspection Eyes General: appearance normal, both eyes and all related structures Neck Neck: Yes normal visual inspection Thyroid: Thyroid normal Chest Chest palpation & inspection: normal inspection of the chest and other (no puckering, dimpling, peau de orange, retraction, discharge, masses) Breast/axilla inspection: normal inspection of the breasts Breast/axilla palpation: normal palpation of the breasts Resp Effort & Inspection: normal respiratory effort GI Inspection: Yes normal to inspection Palpation (GI): Soft to palpation Rectal Exam - Female: deferred General: Yes bladder normal to palpation External Female Exam: normal external appearance and normal appearance of the urethra Speculum Exam - Vagina: normal appearance of the vagina, normal palpation and normal vaginal discharge Speculum Exam - Cervix: normal appearance of the cervix and normal palpation Bimanual exam- vagina & uterus: normal bimanual exam, normal palpation, uterine size normal, bladder normal to palpation, normal palpation, non-tender and other (Bled with the Pap) Bimanual Exam- Adnexa, other: no masses Skin General skin exam: no rashes or lesions noted Rashes: no rashes Neuro General: patient oriented x3 Cognition (Neuro): normal cognition Extrem General: Yes normal to inspection Psych Attitude: cooperative Thought process: Normal thought process present Assessment & Plan Assessment & Plan (1) Encounter for routine gynecological examination: Code(s): Z01.419 - Encounter for gynecological examination (general) (routine) without abnormal findings Category: Medical Qualifiers: Gynecological examination findings: abnormal findings ABSENT Qualified Code(s): Z01.419 - Encounter for gynecological examination (general) (routine) without abnormal findings Plan: Discussed: Current recommendations for pap smears per ASCCP guidelines. Breast awareness, periodic self breast exams and yearly mammogram. Maintain a healthy lifestyle, well balanced diet including Calcium 1,200 mg and Vitamin D 600 IU daily, and routine exercise. Use of condoms for STI prevention if indicated. Replens moisturizer. Menopause verses perimenopause. Menopause is definitive of 1 year of no menses or 12 months in succession. Report any abnormal uterine bleeding in example prolonged episodes, or short intervals less than 24 days. Internet resources. Patient verbalizes understanding and agrees to the plan of care. She was given opportunity to ask questions and all questions were answered to the best of my ability. RTO in 1 year for annual first assistant manager exam. This note is constructed using voice recognition software. While every effort has been made to ensure accuracy, preschool assistant principal errors may have been included. (2) Screening for STD (sexually transmitted disease): Code(s): Z11.3 - Encounter for screening for infections with a predominantly sexual mode of transmission Category: Medical Plan GC chlamydia and BV panel obtained await results for final plan of care. The patient expressed understanding and agreement with the plan of care. All of her questions and concerns were addressed to the best of my ability. Orders: Orders Pap Smear Today Z01.419 - Encounter for gynecological examination (general) (routine) without abnormal findings Bacterial Vaginosis Panel Today Z11.3 - Encounter for screening for infections with a predominantly sexual mode of transmission HPV High risk Today Z01.419 - Encounter for gynecological examination (general) (routine) without abnormal findings CT NG by PCR Vag/Cerv Today Z11.3 - Encounter for screening for infections with a predominantly sexual mode of transmission Coding Level of Care Code New Pt Prev Care 40-64y(09717) Diagnoses Encounter for gynecological examination without abnormal finding Z01.419 Gynecological examination findings: abnormal findings ABSENT Screening for STD (sexually transmitted disease) Z11.3
[2025-05-08 09:00] VITALS: BP 122/78; BMI 37.3
== END 2025-05-08 10:06 | disposition home or self-care (01) ==
LOC: HO.HWS 08:44
PROVIDERS: PCP Internal Medicine; Visit Provider Advanced Practice Midwife
DX: Z01.419 Encounter for gynecological examination (general) (routine) without abnormal findings (principal); Z11.3 Encounter for screening for infections with a predominantly sexual mode of transmission
CPT/HCPCS: 99386; 99459

== ENCOUNTER 2025-05-08 08:43 | Outpatient (REF) | payer OTHER, SELFPAY ==
[2025-05-08 15:54] LABS: Bacterial Vaginosis PCR POSITIVE (Negative); Candida Group PCR NOT DETECTED (Not Detect); Candida glab krusei PCR NOT DETECTED (Not Detect); Trichomonas vaginalis PCR NOT DETECTED (Not Detect)
[2025-05-08 16:25] LABS: CT PCR NOT DETECTED (Not Detect.); NG PCR NOT DETECTED (Not Detect.)
== END 2025-05-08 08:44 | disposition home or self-care (01) ==
LOC: HO.LNP 08:43
PROVIDERS: PCP Internal Medicine; Visit Provider Advanced Practice Midwife
DX: Z01.419 Encounter for gynecological examination (general) (routine) without abnormal findings (principal); Z20.2 Contact with and (suspected) exposure to infections with a predominantly sexual mode of transmission; Z11.51 Encounter for screening for human papillomavirus (HPV)
CPT/HCPCS: 81515; 87491; 87591; 87626; 88175